=== PATIENT | female | born 1965 | race Caucasian/White ===

== ENCOUNTER 2016-05-16 11:23 | Day surgery (SDC) | payer OTHER ==
[~2016-05-16] VITALS: Ht 152.4 cm; Wt 68.4 kg
[2016-05-16 12:17] VITALS: Ht 152.4 cm; Wt 68.4 kg
[2016-05-16] MEDS ORDERED: EMPA10TA PO (12:35)
[2016-05-16] MEDS ORDERED: HYDR-3010 PO (12:35)
[2016-05-16] MEDS ORDERED: GLIM2TAB PO (12:35)
[2016-05-16] MEDS ORDERED: METF-730 PO (12:35)
[2016-05-16] MEDS ORDERED: ZOC10 PO (12:35)
[2016-05-16] MEDS ORDERED: GEMF600T60 PO (12:35)
[2016-05-16 12:36] VITALS: BP 119/60; PULSE 79; RESP 16
[2016-05-16 13:53] VITALS: BP 123/59; PULSE 75; RESP 16
[2016-05-16] MEDS ORDERED: MIDAZOLAM 1 MG/ML 2 ML INJ ONE (14:04)
[2016-05-16] MEDS ORDERED: MEPERIDINE 50 MG INJ ONE (14:04)
[2016-05-16] MEDS ORDERED: FENTAnyl 50 MCG/ML VIAL ONE (14:04)
[2016-05-16 14:37] VITALS: BP 107/51; PULSE 62; RESP 16
--- NOTE | 2016-05-17 04:26 | GILP ---
DATE OF PROCEDURE: 05/16/2016 PREOPERATIVE DIAGNOSIS: Screening colonoscopy. PROCEDURE: Colonoscopy all the way to cecum. POSTOPERATIVE DIAGNOSIS: Essentially normal study. DESCRIPTION OF PROCEDURE: The patient was put in left lateral decubitus after obtaining informed co nsent, was sedated, monitored on oximetry, EKG, blood pressure. She received totally 2 mg IV Versed , 50 mcg of fentanyl and 50 mg of Demerol in small doses. Rectal exam was done. A retroverted uterus was felt, but no masses. I advanced a pediatric Olympus video colonoscope all the way to cecum. The cecum was identified with ileocecal valve, appendiceal opening. Cecum, ascending colon, transverse colon, descending colon, sigmoid colon, and rectum incl uding retroflexion were normal. Post procedure, the patient had no complications. Dear Dr. Jassi Bañuelos: I have advised her to follow up with you as this is normal. She will have d iet as before, a diabetic diet and continue all other medications. Repeat colonoscopy in 10 years. Total time is 15 minutes and withdrawal time is 7 minutes. Dictated By: REED CARNEY Conf#: [id number] DID#: [id number] CC: Jassi Bañuelos;*End*
== END 2016-05-16 15:01 | disposition home or self-care (01) ==
LOC: GIL 11:23
PROVIDERS: ATTEND Internal Medicine
DX: Z12.11 Encounter for screening for malignant neoplasm of colon (principal); J45.909 Unspecified asthma, uncomplicated; E11.9 Type 2 diabetes mellitus without complications
CPT/HCPCS: 45378; 82962; J2175; J2250; J3010